=== PATIENT | female | born 1990 | race Caucasian/White ===

== ENCOUNTER → 2020-01-09 16:48 | Outpatient (BNVA) | payer OTHER, SELFPAY | PROVIDERS: Visit Provider Nurse Practitioner Women's Health | DX: Z30.9 Encounter for contraceptive management, unspecified (principal); Z30.013 Encounter for initial prescription of injectable contraceptive | CPT/HCPCS: 88175 ==

== ENCOUNTER → 2020-02-02 15:02 | Outpatient (BNVA) | payer OTHER, SELFPAY | PROVIDERS: Visit Provider Nurse Practitioner Women's Health | DX: Z30.013 Encounter for initial prescription of injectable contraceptive (principal) | CPT/HCPCS: 81025 ==

== ENCOUNTER 2020-10-21 06:00 | Outpatient (CLI) | payer OTHER, SELFPAY ==
[2020-10-21 06:37] LABS: Hematocrit 41.4 % (37.0-47.0); Hemoglobin 13.2 g/dL (11.5-15.3); Mean Corpuscular HGB Conc 31.9 g/dL (30.0-36.0); Mean Corpuscular Volume 87.7 fL (81-99); Mean Platelet Volume 10.5 fL (7.4-10.4); Platelet Count 317 10^3/cmm (130-400); Red Blood Count 4.72 10^6/uL (4.1-5.3); Red Cell Distribution Width 13.9 % (12.1-15.1); White Blood Count 11.1 10^3/uL (4.0-10.0)
[2020-10-21 06:50] LABS: Alanine Aminotransferase 13 U/L (0-33); Albumin Level 3.8 g/dL (3.5-5.2); Alkaline Phosphatase 62 IU/L (35-105); Anion Gap 13.2 (5-19); Aspartate Amino Transferase 13 U/L (0-32); Blood Urea Nitrogen 22 mg/dL (6-20); C Reactive Protein 21.4 mg/L (0.0-4.9); Calcium 8.5 mg/dL (8.5-10.5); Carbon Dioxide 26 mmol/L (22-29); Chloride 101 mmol/L (98-107); Chol HDL Ratio 4.51 mg/dL (0.0-4.40); Cholesterol 185 mg/dL (0-200); Globulin 3.5 g/dL (1.3-4.6); Glomerular Filtration Rate 115.9 mL/min (90-130); Glucose 99 mg/dL (65-115); HDL Cholesterol 41 mg/dL (60-100); LDL Cholesterol Calculated 120 mg/dL (50-129); Osmolality Calculated 285 mOsm/kg (285-295); Potassium 4.2 mmol/L (3.5-5.1); Sodium 136 mmol/L (136-145); Total Bilirubin 0.4 mg/dL (0.15-1.2); Total Protein 7.3 g/dL (6.6-8.7); Triglycerides 119 mg/dL (0-150); VLDL Cholestrol Calculation 24 mg/dL (0-30)
[2020-10-21 07:06] LABS: Absolute Eosinophils 0.2 10^3/cmm (0.0-0.7); Absolute Segmented Neutrophil 7.3 10/cmm (1.6-7.1); Band Neutrophils Absolute 0.2 10^3/cmm (0.0-1.2); Eosinophils 2 %; Lymphocytes 23 %; Monocytes Absolute 0.8 10^3/cmm (0.1-0.6); Segmented Neutrophils 66 %; Total Cells Counted 100 (0-100)
[2020-10-21 07:07] LABS: Absolute Neutrophil 7.5 10^3/cmm (1.4-6.5); Platelet Estimate Normal (Normal)
[2020-10-21 07:12] LABS: Lymphocytes Absolute 2.6 10^3/cmm (1.2-3.4)
[2020-10-21 07:35] LABS: Erythrocyte Sedimentation Rate 32 mm/hr (0-15)
[2020-10-22 11:59] LABS: COMPLEMENT COMPONENT C3C 173 mg/dL (83-193); COMPLEMENT COMPONENT C4C 32 mg/dL (15-57)
[2020-10-22 13:38] LABS: COMPLEMENT, TOTAL (CH50) >60 U/mL (31-60)
[2020-10-25 12:33] LABS: CENTROMERE B ANTIBODY <1.0 NEG AI (<1.0 NEG); JO-1 ANTIBODY <1.0 NEG AI (<1.0 NEG); RNP ANTIBODY <1.0 NEG AI (<1.0 NEG); SCL-70 ANTIBODY <1.0 NEG AI (<1.0 NEG); SJOGREN'S ANTIBODY (SS-A) <1.0 NEG AI (<1.0 NEG); SM ANTIBODY <1.0 NEG AI (<1.0 NEG); SS-B <1.0 NEG AI (<1.0 NEG)
[2020-10-25 14:42] LABS: ANA SCREEN, IFA NEGATIVE (NEGATIVE); THYROID PEROXIDASE ANTIBODIES 1 IU/mL (<9)
[2020-10-29 00:38] LABS: DNA AB (DS) CRITHIDIA,IFA NEGATIVE (NEGATIVE)
== END 2020-10-21 06:01 | disposition home or self-care (01) ==
LOC: LAB 08:09
PROVIDERS: PCP Family Medicine Adult Medicine; Visit Provider Family Medicine Adult Medicine
DX: E66.01 Morbid (severe) obesity due to excess calories (principal); Z68.42 Body mass index [BMI] 45.0-49.9, adult; R52 Pain, unspecified; E78.5 Hyperlipidemia, unspecified
CPT/HCPCS: 80053; 80061; 85007; 85027; 85651; 86140; 86160; 86162; 86235; 86255; 86376; 86431

== ENCOUNTER → 2021-02-08 09:51 | Outpatient (BNVA) | payer OTHER, SELFPAY | PROVIDERS: PCP Family Medicine Adult Medicine; Visit Provider Internal Medicine Rheumatology | DX: M19.90 Unspecified osteoarthritis, unspecified site (principal); Z79.899 Other long term (current) drug therapy; Z11.59 Encounter for screening for other viral diseases; Z11.1 Encounter for screening for respiratory tuberculosis; E66.01 Morbid (severe) obesity due to excess calories; Z68.43 Body mass index [BMI] 50.0-59.9, adult; Z71.89 Other specified counseling | CPT/HCPCS: 99204 ==

== ENCOUNTER 2021-02-08 14:40 | Outpatient (CLI) | payer OTHER, SELFPAY ==
--- NOTE | 2021-02-08 14:50 | XR_ITS ---
WS: [id number] LEFT HAND: 3 VIEW(S) TECHNIQUE: PA, oblique and lateral. HISTORY: Z79.899 - Other snf (current) drug therapy COMPARISON: None available. No acute fracture or dislocation. No soft tissue or bone abnormality. XR/XR hand LT min 3V* [id number] IMPRESSION: Normal LEFT hand.
--- NOTE | 2021-02-08 14:50 | XR_ITS ---
WS: [id number] LEFT FOOT: 3 VIEW(S) TECHNIQUE: AP, oblique and lateral. HISTORY: Z79.899 - Other [facility] (current) drug therapy COMPARISON: None available. No acute fracture or dislocation. Normal tarsal/metatarsal alignment. No soft tissue abnormality or bone destruction. Small calcaneal spur. XR/XR foot LT min 3V* [id number] IMPRESSION: Small calcaneal spur. Otherwise negative.
--- NOTE | 2021-02-08 14:50 | XR_ITS ---
WS: [id number] RIGHT HAND: 3 VIEW(S) TECHNIQUE: PA, oblique and lateral. 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 No acute fracture or dislocation. No soft tissue or bone abnormality. XR/XR hand RT min 3V* [id number] IMPRESSION: Normal RIGHT hand.
--- NOTE | 2021-02-08 14:50 | XR_ITS ---
WS: [id number] PELVIS: AP VIEW SUBMITTED HISTORY: M19.90 - Unspecified osteoarthritis, unspecified site COMPARISON: None available. Bones and soft tissues of the pelvis are intact. No fracture or dislocation. XR/XR pelvis 1-2V* [id number] IMPRESSION: Negative pelvis.
--- NOTE | 2021-02-08 14:50 | XR_ITS ---
WS: [id number] RIGHT FOOT: 3 VIEW(S) TECHNIQUE: AP, oblique and lateral. 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 No acute fracture or dislocation. Normal tarsal/metatarsal alignment. No soft tissue abnormality or bone destruction. Small calcaneal spur. XR/XR foot RT min 3V* [id number] IMPRESSION: Small calcaneal spur. Otherwise negative.
[2021-02-08 16:16] LABS: Basophils # 0.1 10^3/uL (0.0-0.1); Basophils % 0.4 %; Eosinophils # 0.2 10^3/uL (0.0-0.8); Eosinophils % 1.9 %; Hematocrit 44.2 % (37.0-47.0); Hemoglobin 13.7 g/dL (11.5-15.3); Lymphocytes # 2.7 10^3/uL (0.8-4.8); Lymphocytes % 23.7 %; Mean Corpuscular Hemoglobin 27.6 pg (28.0-34.0); Mean Corpuscular Volume 89.1 fl (81-99); Mean Platelet Volume 10.6 fL (7.4-10.4); Monocytes % 8.6 %; Neutrophils # 7.34 10^3/uL (1.8-7.7); Neutrophils % 65.1 %; Nucleated Red Blood Cells % 0 %; Platelet Count 294 10^3/cmm (130-400); Red Blood Count 4.96 10^6/uL (4.1-5.3); Red Cell Distribution Width 14.2 % (12.1-15.1); White Blood Count 11.3 10^3/uL (4.0-10.0)
[2021-02-08 17:00] LABS: Alanine Aminotransferase 16 U/L (0-33); Albumin Level 4.1 g/dL (3.5-5.2); Alkaline Phosphatase 62 IU/L (35-105); Aspartate Amino Transferase 14 U/L (0-32); C Reactive Protein 47.7 mg/L (0.0-4.9); Globulin 3.4 g/dL (1.3-4.6); Total Bilirubin 0.6 mg/dL (0.15-1.2); Total Protein 7.5 g/dL (6.6-8.7)
[2021-02-08 17:13] LABS: Hepatitis B Core AB, Total Non-Reactive (Nonreactive); Hepatitis B Surface Antigen Non-Reactive (Nonreactive); Hepatitis C Virus Antibody Non-Reactive (Nonreactive)
[2021-02-08 17:25] LABS: Erythrocyte Sedimentation Rate 34 mm/hr (0-15)
[2021-02-08 18:56] LABS: 25 Hydroxy Vitamin D 18 ng/mL (30-100)
[2021-02-10 15:08] LABS: Cyclic Citrullinated Peptide <16 UNITS
[2021-02-10 16:28] LABS: Quantiferon Mitogen 8.13 IU/mL; Quantiferon Nil 0.05 IU/mL; Quantiferon Plus TB1 0.01 IU/mL; Quantiferon TB Gold NEGATIVE (NEGATIVE)
== END 2021-02-08 14:41 | disposition home or self-care (01) ==
PROVIDERS: PCP Physician Assistant; Visit Provider Internal Medicine Rheumatology
DX: M19.90 Unspecified osteoarthritis, unspecified site (principal); Z79.899 Other long term (current) drug therapy; Z11.59 Encounter for screening for other viral diseases; Z11.1 Encounter for screening for respiratory tuberculosis
CPT/HCPCS: 36415; 72170; 73130; 73630; 80076; 82306; 82565; 85025; 85651; 86140; 86480; 86704; 86803; 87340

== ENCOUNTER → 2021-03-28 14:33 | Outpatient (BNVA) | payer OTHER, SELFPAY | PROVIDERS: PCP Physician Assistant; Visit Provider Internal Medicine Rheumatology | DX: M06.041 Rheumatoid arthritis without rheumatoid factor, right hand (principal); M06.042 Rheumatoid arthritis without rheumatoid factor, left hand; Z79.899 Other long term (current) drug therapy; E66.01 Morbid (severe) obesity due to excess calories; Z68.42 Body mass index [BMI] 45.0-49.9, adult; M79.7 Fibromyalgia; G47.39 Other sleep apnea; Z82.61 Family history of arthritis; Z71.89 Other specified counseling | CPT/HCPCS: 99214 ==

== ENCOUNTER 2021-03-28 15:35 | Outpatient (CLI) | payer OTHER, SELFPAY ==
[2021-03-28 16:45] LABS: Alanine Aminotransferase 14 U/L (0-33); Alkaline Phosphatase 60 IU/L (35-105); Aspartate Amino Transferase 10 U/L (0-32); C Reactive Protein 11.3 mg/L (0.0-4.9); Glomerular Filtration Rate 115.9 mL/min (90-130); Total Bilirubin 0.6 mg/dL (0.15-1.2)
[2021-03-28 17:03] LABS: Basophils # 0.1 10^3/uL (0.0-0.1); Basophils % 0.4 %; Eosinophils % 0.1 %; Hematocrit 43.2 % (37.0-47.0); Hemoglobin 13.8 g/dL (11.5-15.3); Lymphocytes # 1.8 10^3/uL (0.8-4.8); Lymphocytes % 12.9 %; Mean Corpuscular HGB Conc 31.9 g/dL (30.0-36.0); Mean Corpuscular Hemoglobin 28.8 pg (28.0-34.0); Mean Platelet Volume 10.7 fL (7.4-10.4); Monocytes # 0.5 10^3/uL (0.2-0.9); Monocytes % 3.7 %; Neutrophils # 11.44 10^3/uL (1.8-7.7); Neutrophils % 82.3 %; Nucleated Red Blood Cells % 0 %; Platelet Count 326 10^3/cmm (130-400); Red Cell Distribution Width 15.3 % (12.1-15.1); White Blood Count 13.9 10^3/uL (4.0-10.0)
== END 2021-03-28 15:36 | disposition home or self-care (01) ==
PROVIDERS: PCP Physician Assistant; Visit Provider Internal Medicine Rheumatology
DX: M19.90 Unspecified osteoarthritis, unspecified site (principal); Z79.899 Other long term (current) drug therapy
CPT/HCPCS: 36415; 80076; 82565; 85025; 86140

== ENCOUNTER 2021-05-03 11:24 | Outpatient (CLI) | payer OTHER, SELFPAY ==
[2021-05-03 12:12] LABS: Basophils # 0.1 10^3/uL (0.0-0.1); Basophils % 0.9 %; Eosinophils # 0.1 10^3/uL (0.0-0.8); Eosinophils % 1.7 %; Hematocrit 44.3 % (37.0-47.0); Hemoglobin 14.2 g/dL (11.5-15.3); Lymphocytes # 2.3 10^3/uL (0.8-4.8); Lymphocytes % 29.8 %; Mean Corpuscular HGB Conc 32.1 g/dL (30.0-36.0); Mean Corpuscular Hemoglobin 28.3 pg (28.0-34.0); Mean Corpuscular Volume 88.2 fl (81-99); Mean Platelet Volume 10.3 fL (7.4-10.4); Monocytes # 0.5 10^3/uL (0.2-0.9); Neutrophils % 60.3 %; Nucleated Red Blood Cells % 0 %; Platelet Count 280 10^3/cmm (130-400); Red Blood Count 5.02 10^6/uL (4.1-5.3); Red Cell Distribution Width 14.3 % (12.1-15.1); White Blood Count 7.6 10^3/uL (4.0-10.0)
[2021-05-03 12:55] LABS: Alanine Aminotransferase 21 U/L (0-33); Albumin Level 4.2 g/dL (3.5-5.2); Alkaline Phosphatase 49 IU/L (35-105); Aspartate Amino Transferase 14 U/L (0-32); C Reactive Protein 8.2 mg/L (0.0-4.9); Globulin 2.6 g/dL (1.3-4.6); Glomerular Filtration Rate 115.1 mL/min (90-130); Total Bilirubin 0.6 mg/dL (0.15-1.2); Total Protein 6.8 g/dL (6.6-8.7)
== END 2021-05-03 11:25 | disposition home or self-care (01) ==
PROVIDERS: PCP Physician Assistant; Visit Provider Internal Medicine Rheumatology
DX: M19.90 Unspecified osteoarthritis, unspecified site (principal); Z79.899 Other long term (current) drug therapy
CPT/HCPCS: 36415; 80076; 82565; 85025; 86140

== ENCOUNTER → 2021-05-13 13:28 | Outpatient (BNVA) | payer OTHER, SELFPAY | PROVIDERS: PCP Physician Assistant; Visit Provider Surgery | DX: Z11.52 Encounter for screening for COVID-19 (principal) | CPT/HCPCS: 87635 ==

== ENCOUNTER 2021-05-18 06:07 | Day surgery (SDC) | payer OTHER, SELFPAY ==
[2021-05-16 10:59] VITALS: BMI 48.7
[2021-05-18 06:45] VITALS: BP 127/74; PULSE 84; RESP 18; TEMP 36.4; O2SAT 97
--- NOTE | 2021-05-18 06:52 | W.PM.OPSUD ---
Surgery/Procedure H&P Update DATE OF PROCEDURE: May 18, 2021 DATE H&P PERFORMED: 04/20/21 H&P UPDATE INFORMATION: I have reviewed H&P completed within last 30 days, I have examined patient prior to procedure and No changes to prior documentation PREOP DIAGNOSIS: Morbid obesity/gerd PRIMARY INDICATION FOR PROCEDURE: The same/Prebariatric surgery screening PLANNED PROCEDURE: Operation Date: 05/18/21 07:30 Proposed Procedures p EGD 82654 K21.9(Not Applicable) - Rj Ramirez MD
[2021-05-18] MEDS: sodium chloride 0.9% 1,000 ML 30 ML IV (06:59)
--- NOTE | 2021-05-18 07:45 | ANES.PREANE2 ---
Pre-Anesthetic Assessment Pre-Anesthetic Assessment: Height/Weight: Height 1.55 m Weight 117.027 kg Temp Pulse Resp BP Pulse Ox 97.5 F L 84 18 127/74 97 05/18/21 06:45 05/18/21 06:45 05/18/21 06:45 05/18/21 06:45 05/18/21 06:45 Preop Diagnosis: Morbid obesity/gerd Proposed Procedure: Operation Date: 05/18/21 07:30 Proposed Procedures p EGD 43052 K21.9(Not Applicable) - Rj Ramirez MD Was Beta Julia taken within 24 hours: N/A Was Clonidine taken within 24 hours: N/A Last intake: Intake Last Liquid Date 05/17/21 Last Liquid Time 21:00 Last Solid Date 05/17/21 Last Solid Time 19:30 Social: Social History: No alcohol and No tobacco Exam: Pre-Anes Outpt Exam: alert, oriented x 3, clear to auscultation bilaterally and regular rate & rhythm Airway: Submandibular: WNL Cervical ROM: WNL MP: 3 Dentition: Full History/ROS: No significant history except as noted and No significant complaints Pulmonary: Pulmonary: None reported CV/HEM: CV/HEM: None reported : : None reported Hepatic: Hepatic: None reported GI: GI: GERD Metabolic: Metabolic: None reported Musc/skel: Musc/skel: None reported Neuropsych: Neuropsych: None reported Anesthetic Plan: ASA status: 3 Anesthesia: Anesthesia Evaluation and MAC Risk of > 500 ml blood loss (7ml/kg in children): No Meds/Allergies Current Medications: Current Medications Generic Name Dose Route Start Last Admin Trade Name Freq PRN Reason Stop Dose Admin Sodium Chloride 1,000 mls @ 30 ml s/hr 05/18/21 06:15 05/18/21 06:59 Sodium Chloride 0.9% IV 05/19/21 06:14 30 mls/hr .Q24H YAZAN Administration PFSH Anesthesia PFSH: Medical History Anxiety Complaints of total body pain Contraceptive management Depression Dyslipidemia High risk medication use Immunization counseling Inflammatory arthritis Morbid obesity with BMI of 45.0-49.9, adult No pertinent past medical history neghx: htn,dm,thyroid,dvt/pe Psychiatric care Seronegative rheumatoid arthritis of both hands Surgical History No pertinent past surgical history Family History Father Diabetes Hypertension Heart disease Hyperlipidemia Grandmother Hypertension Paternal grandmother Grandfather Hypertension Paternal grandfather Other CAD (coronary artery disease) Cancer Rheumatoid arthritis Denies family history of Colon cancer Ovarian cancer Lupus Chronic kidney disease (CKD) Breast cancer Family history of thyroid problem Uterine cancer Stroke Social History Alcohol intake: never Marital status: Single Number of children: 0 Current occupational status: employed History of recent travel: No Additional social history: - Tobacco use: Denies Alcohol use: Social Drug use: Denies Female Reproductive History: Date of last menstrual period: 05/08/21 Data Anesthesia Cardiac Studies: No Data to Display
[2021-05-18 08:05] VITALS: BP 134/96; PULSE 97; RESP 16; TEMP 36.1; O2SAT 97
[2021-05-18 08:15] VITALS: BP 133/87; PULSE 79; RESP 18; O2SAT 98
[2021-05-18 08:25] VITALS: BP 115/71; PULSE 77; RESP 18; TEMP 36.2; O2SAT 97
--- NOTE | 2021-05-18 14:08 | ANE.PACU2 ---
Inpatient post-anesthesia follow up: Airway intact: Yes Vital signs: Temperature 97.2 F Pulse Rate 77 Respiratory Rate 18 Blood Pressure 115/71 Pulse Oximetry 97 Oxygen Delivery Me thod Room Air Oxygen Flow Rate Fraction of Inspir ed Oxygen Hydration adequate: Yes Nausea and vomiting: No Pain level: 1 Mental status: Baseline
== END 2021-05-18 08:25 | disposition home or self-care (01) ==
PROVIDERS: PCP Physician Assistant; Visit Provider Surgery
PROC: 0DJ08ZZ Inspection of Upper Intestinal Tract, Via Natural or Artificial Opening Endoscopic (ICD-10-PCS; CPT 43235; principal; 2021-05-18 07:30)
DX: E66.01 Morbid (severe) obesity due to excess calories (principal); Z68.42 Body mass index [BMI] 45.0-49.9, adult; K21.9 Gastro-esophageal reflux disease without esophagitis; K31.7 Polyp of stomach and duodenum; K29.70 Gastritis, unspecified, without bleeding; E78.5 Hyperlipidemia, unspecified
CPT/HCPCS: 43239; 81025; 88305; 96360; J2704; J7030

== ENCOUNTER 2021-08-15 11:43 | Outpatient (CLI) | payer OTHER, SELFPAY ==
[2021-08-15 12:05] LABS: Basophils # 0.1 10^3/uL (0.0-0.1); Basophils % 0.9 %; Eosinophils # 0.2 10^3/uL (0.0-0.8); Eosinophils % 1.8 %; Hemoglobin 13.3 g/dL (11.5-15.3); Lymphocytes # 2.4 10^3/uL (0.8-4.8); Lymphocytes % 22.1 %; Mean Corpuscular HGB Conc 31.7 g/dL (30.0-36.0); Mean Corpuscular Hemoglobin 29.2 pg (28.0-34.0); Mean Corpuscular Volume 92.3 fl (81-99); Mean Platelet Volume 10.3 fL (7.4-10.4); Monocytes # 0.6 10^3/uL (0.2-0.9); Monocytes % 5.7 %; Neutrophils # 7.37 10^3/uL (1.8-7.7); Neutrophils % 69.1 %; Nucleated Red Blood Cells % 0 %; Platelet Count 258 10^3/cmm (130-400); Red Blood Count 4.55 10^6/uL (4.1-5.3); Red Cell Distribution Width 14.6 % (12.1-15.1); White Blood Count 10.7 10^3/uL (4.0-10.0)
[2021-08-15 12:35] LABS: Alanine Aminotransferase 24 U/L (0-33); Albumin Level 4.1 g/dL (3.5-5.2); Alkaline Phosphatase 71 IU/L (35-105); Aspartate Amino Transferase 16 U/L (0-32); C Reactive Protein 20.9 mg/L (0.0-4.9); Globulin 3.3 g/dL (1.3-4.6); Glomerular Filtration Rate 82.6 mL/min (90-130); Total Bilirubin 0.3 mg/dL (0.15-1.2); Total Protein 7.4 g/dL (6.6-8.7)
== END 2021-08-15 11:44 | disposition home or self-care (01) ==
PROVIDERS: PCP Physician Assistant; Visit Provider Internal Medicine Rheumatology
DX: M06.041 Rheumatoid arthritis without rheumatoid factor, right hand (principal); M06.042 Rheumatoid arthritis without rheumatoid factor, left hand; Z79.899 Other long term (current) drug therapy
CPT/HCPCS: 80076; 82565; 85025; 86140

== ENCOUNTER 2022-05-05 07:54 | Outpatient (CLI) | payer OTHER, SELFPAY ==
--- NOTE | 2022-05-05 08:01 | MR_ITS ---
WS: [id number] MRI BRAIN WITHOUT CONTRAST HISTORY: INTRACTABLE CHRONIC MIGRAINE W/O AURA W/STATUS MIGRAINOSUS COMPARISON: None available. TECHNIQUE: Diffusion imaging, multiplanar T1, T2 and FLAIR imaging obtained. No evidence for acute infarct or hemorrhage. Chamberlain-white matter differentiation is normal. No prior infarct. Very minimal T2 and FLAIR hyperintensities. These can be seen with migraine headach es. The distribution is nonspecific. Ventricles and extra-axial spaces are normal. No inferior displacement of cerebellar tonsils. The sella turcica and pituitary gland are unremarkabl e. Dural venous sinuses and [place] demonstrate no abnormality on this unenhanced studies. Paranasal sinuses: Clear. Mastoid air cells: Normal. Calvarium and scalp: Intact. MR/MR head wo con* [id number] IMPRESSION: 1. No acute hemorrhage or prior infarcts. 2. Very minimal, nonspecific T2 and FLAIR signal hyperintensities. These can b e seen with migraine headaches or related very minimal small vessel ischemic c hanges. No prior infarct.
== END 2022-05-05 07:55 | disposition home or self-care (01) ==
PROVIDERS: PCP Physician Assistant; Visit Provider Family Medicine
DX: G43.711 Chronic migraine without aura, intractable, with status migrainosus (principal)
CPT/HCPCS: 70551

== ENCOUNTER 2022-07-06 14:56 | Outpatient (CLI) | payer OTHER, SELFPAY ==
[2022-07-06 16:07] LABS: Basophils # 0.1 10^3/uL (0.0-0.1); Basophils % 0.8 %; Eosinophils # 0.5 10^3/uL (0.0-0.8); Eosinophils % 3.8 %; Hematocrit 42.8 % (37.0-47.0); Hemoglobin 13.5 g/dL (11.5-15.3); Lymphocytes # 2.9 10^3/uL (0.8-4.8); Lymphocytes % 22.3 %; Mean Corpuscular HGB Conc 31.5 g/dL (30.0-36.0); Mean Corpuscular Hemoglobin 27.9 pg (28.0-34.0); Mean Corpuscular Volume 88.4 fl (81-99); Mean Platelet Volume 9.8 fL (7.4-10.4); Monocytes # 0.7 10^3/uL (0.2-0.9); Monocytes % 5.6 %; Neutrophils # 8.71 10^3/uL (1.8-7.7); Neutrophils % 66.9 %; Nucleated Red Blood Cells % 0 %; Platelet Count 378 10^3/cmm (130-400); Red Blood Count 4.84 10^6/uL (4.1-5.3); Red Cell Distribution Width 14.4 % (12.1-15.1)
[2022-07-06 17:07] LABS: Ferritin 157 ng/mL (15-150); Iron 37 ug/dL (37-145); Percent Saturation 15.6 % (20-50); Thyroid Stimulating Hormone 3.98 uIU/mL (0.27-4.20); Total Iron Binding Capacity 236 mcg/dl; Unsaturated Iron Binding 199 ug/dL (112-347); Vitamin B12 496 pg/mL (232-1245)
[2022-07-06 18:14] LABS: Folate Level 7.5 ng/mL (4.8-37.3)
[2022-07-06 19:39] LABS: T3 Free 3.1 PG/ML (2.0-4.4)
[2022-07-10 18:04] LABS: Testosterone, Free 3.7 pg/mL (0.2-5.0)
[2022-07-11 09:05] LABS: Zinc Level, Serum or Plasma 63 mcg/dL (60-130)
[2022-07-11 12:40] LABS: Vit D 1,25 (Oh)2, Total 52 pg/mL (18-72); Vit D2 1,25 (Oh)2 <8 pg/mL; Vit D3 1,25 (Oh)2 52 pg/mL
[2022-07-12 09:44] LABS: Beef (BOS SPP) Class 2; Galactose-alpha-1,3 IgE 1.14 kU/L (<0.10); Lamb / Mutton (Ovis SPP) IgE 0.79 kU/L (<0.35); Lamb / Mutton Class 2; Pork Class 2
[2022-07-13 12:59] LABS: Anti-Nuclear Antibody Pattern Cytoplasmic; Anti-Nuclear Antibody Screen POSITIVE (NEGATIVE); Anti-Nuclear Antibody Titer 1:40 titer
== END 2022-07-06 14:57 | disposition home or self-care (01) ==
LOC: LAB 14:59
PROVIDERS: Registered Nurse; PCP Physician Assistant; Visit Provider Nurse Practitioner Family
DX: L65.9 Nonscarring hair loss, unspecified (principal)
CPT/HCPCS: 36415; 82607; 82652; 82728; 82746; 83540; 83550; 84402; 84443; 84481; 84630; 85025; 86003; 86008; 86038

== ENCOUNTER → 2022-08-10 15:10 | Outpatient (BNVA) | payer OTHER, SELFPAY | PROVIDERS: PCP Family Medicine; Visit Provider Internal Medicine Rheumatology | DX: M06.041 Rheumatoid arthritis without rheumatoid factor, right hand (principal); M06.042 Rheumatoid arthritis without rheumatoid factor, left hand; Z79.899 Other long term (current) drug therapy; M45.6 Ankylosing spondylitis lumbar region | CPT/HCPCS: 36415; 73630; 85651; 86812 ==

== ENCOUNTER 2023-02-26 12:14 | Outpatient (CLI) | payer BC, MEDICAID, SELFPAY ==
[2023-02-26 12:50] LABS: Basophils # 0.1 10^3/uL (0.0-0.1); Basophils % 1.3 %; Eosinophils # 0.4 10^3/uL (0.0-0.8); Eosinophils % 4.6 %; Hematocrit 42.6 % (36-47); Lymphocytes # 2.5 10^3/uL (0.8-4.8); Lymphocytes % 29.8 %; Mean Corpuscular HGB Conc 32.2 g/dL (30-55); Mean Corpuscular Hemoglobin 28.8 pg (27-33); Mean Corpuscular Volume 89.7 fl (85-98); Mean Platelet Volume 10.3 fL (7.4-10.4); Monocytes # 0.6 10^3/uL (0.2-0.9); Monocytes % 6.9 %; Neutrophils # 4.75 10^3/uL (1.8-7.7); Neutrophils % 57.2 %; Nucleated Red Blood Cells % 0 %; Platelet Count 334 10^3/cmm (157-399); Red Blood Count 4.75 10^6/uL (3.85-5.65); Red Cell Distribution Width 14.3 % (12.1-15.1)
[2023-02-26 13:09] LABS: Alanine Aminotransferase 21 U/L (0-33); Albumin Level 4.2 g/dL (3.5-5.2); Alkaline Phosphatase 75 U/L (35-105); Aspartate Amino Transferase 16 U/L (0-32); C Reactive Protein 7.8 mg/L (0.0-4.9); Globulin 3.4 g/dL (1.3-4.6); Glomerular Filtration Rate 82.1 mL/min (90-130); Total Bilirubin 0.5 mg/dL (0.15-1.2); Total Protein 7.6 g/dL (6.6-8.7)
== END 2023-02-26 12:15 | disposition home or self-care (01) ==
PROVIDERS: PCP Family Medicine; Visit Provider Internal Medicine Rheumatology
DX: M06.041 Rheumatoid arthritis without rheumatoid factor, right hand (principal); M06.042 Rheumatoid arthritis without rheumatoid factor, left hand; Z79.899 Other long term (current) drug therapy
CPT/HCPCS: 36415; 80076; 82565; 85025; 86140

== ENCOUNTER → 2023-04-23 16:09 | Outpatient (BNVA) | payer BC, MEDICAID, SELFPAY | PROVIDERS: PCP Family Medicine; Visit Provider Nurse Practitioner Women's Health | DX: N39.0 Urinary tract infection, site not specified (principal) | CPT/HCPCS: 81000 ==

== ENCOUNTER → 2023-05-01 15:17 | Outpatient (BNVA) | payer BC, MEDICAID, SELFPAY | PROVIDERS: PCP Family Medicine; Visit Provider Nurse Practitioner Women's Health | DX: N93.9 Abnormal uterine and vaginal bleeding, unspecified (principal) | CPT/HCPCS: 76830 ==

== ENCOUNTER → 2023-06-13 09:16 | Outpatient (BNVA) | payer BC, MEDICAID, SELFPAY | PROVIDERS: PCP Family Medicine; Visit Provider Nurse Practitioner Women's Health | DX: N93.9 Abnormal uterine and vaginal bleeding, unspecified (principal) | CPT/HCPCS: 76830 ==

== ENCOUNTER → 2023-06-26 09:20 | Outpatient (BNVA) | payer BC, MEDICAID, SELFPAY | PROVIDERS: PCP Family Medicine; Visit Provider Nurse Practitioner Women's Health | DX: Z30.9 Encounter for contraceptive management, unspecified (principal) | CPT/HCPCS: 81025 ==

== ENCOUNTER → 2023-07-03 13:50 | Outpatient (BNVA) | payer BC, MEDICAID, SELFPAY | PROVIDERS: PCP Physician Assistant; Visit Provider Internal Medicine Rheumatology | DX: Z79.899 Other long term (current) drug therapy (principal); M06.041 Rheumatoid arthritis without rheumatoid factor, right hand; M06.042 Rheumatoid arthritis without rheumatoid factor, left hand | CPT/HCPCS: 36415; 80076; 82565; 85025; 85651; 86140 ==

== ENCOUNTER → 2023-10-09 14:31 | Outpatient (BNVA) | payer OTHER, SELFPAY | PROVIDERS: PCP Physician Assistant; Visit Provider Internal Medicine Rheumatology | DX: M06.041 Rheumatoid arthritis without rheumatoid factor, right hand (principal); Z79.899 Other long term (current) drug therapy; M06.042 Rheumatoid arthritis without rheumatoid factor, left hand | CPT/HCPCS: 36415; 80076; 82565; 85025; 86140 ==

== ENCOUNTER 2023-11-20 07:57 | Outpatient (CLI) | payer OTHER, BC, MEDICAID, SELFPAY ==
--- NOTE | 2023-11-20 08:30 | MR_ITS ---
WS: [id number] MRA CAROTID WITHOUT AND WITH GADOLINIUM ENHANCEMENT TECHNIQUE: Axial 2-D TOF and gadolinium bolus images obtained with axial images and axial, sagittal, and coronal 2-D reformatted images. CLINICAL INFORMATION: G43.909 - Migraine, unspecified, not intractable, without... COMPARISON: None. FINDINGS: Codominant and patent vertebral arteries bilaterally. Vertebral arteries are patent to the basilar ju nction. RIGHT: RIGHT common carotid artery is patent. No significant RIGHT ICA stenosis. RIGHT ICA is patent to the skull base. LEFT: LEFT common carotid artery is patent. No significant LEFT ICA stenosis. LEFT ICA is patent to t he skull base. Proximal subclavian arteries are patent. MR/MR angio neck w con* [id number] IMPRESSION: 1. Normal neck MRA.
[2023-11-20] MEDS: gadobenate dimeglumine 20 mL vial IV (08:33)
--- NOTE | 2023-11-20 09:15 | MR_ITS ---
WS: [id number] MRI HEAD WITH CONTRAST TECHNIQUE: Sagittal T1, T2 axial, T2 axial FLAIR, axial susceptibility weighted imaging, axial diffus ion weighted images, and coronal T2 images were obtained. Pre and post-T1 axial and post T1 coronal i mages. ADC and FSPGR images. CLINICAL INFORMATION: G43.909 - Migraine, unspecified, not intractable, without... COMPARISON: MRI 05/05/2022 FINDINGS: No evidence of restricted diffusion to suggest acute ischemia. Ventricular system and basal cisterns are patent. Normal posterior fossa. Normal vascular flow voids at the skull base. No extra-axial flui d collections. No evidence of mass or mass effect. Normal avelar-white differentiation. Paranasal sinus es and mastoid air cells are well aerated. Normal posterior nasopharynx. Small retention cyst RIGHT m axillary sinus. Very minimal periventricular white matter changes unchanged compared to previous of doubtful clinical significance but can be seen with migraine headaches. No hemosiderin on the susceptibility weighted images. Normal optic chiasm and pituitary infundibulum. Temporal lobes and hippocampal formations are normal in appearance. No abnormal intracranial enhancement. Normal dural venous sinuses. MR/MR head wo/w con [id number] IMPRESSION: 1. No evidence of restricted diffusion to suggest acute ischemia. 2. No suspicious intracranial signal abnormalities. 3. Very minimal periventricular white matter changes unchanged compared to pre vious of doubtful clinical significance but can be seen with migraine headaches . 4. No hemosiderin on susceptibility-weighted images. 5. No abnormal gadolinium enhancement. Normal dural venous sinuses.
--- NOTE | 2023-11-20 10:00 | MR_ITS ---
WS: [id number] MRA HEAD TECHNIQUE: Axial 3-D TOF images obtained with axial images and axial, sagittal, and coronal 2-D refor matted images. CLINICAL INFORMATION: G43.909 - Migraine, unspecified, not intractable, without... COMPARISON: None. FINDINGS: Some images slightly degraded by motion. Distal vertebral arteries are patent. Basilar artery is patent. Normal vascularity to the [place] territo ry. Patent RIGHT posterior communicating artery. Both ICAs are patent at the skull base. Normal vascularity to the ARI[place] and MCA territories bilaterally . No evidence of proximal flow-limiting stenosis or aneurysm. MR/MR angio head wo con [id number] IMPRESSION: 1. Normal intracranial MRA.
== END 2023-11-20 07:58 | disposition home or self-care (01) ==
LOC: RAD 07:58
PROVIDERS: PCP Physician Assistant; Visit Provider Psychiatry & Neurology Neurology
DX: G43.909 Migraine, unspecified, not intractable, without status migrainosus (principal)
CPT/HCPCS: 70544; 70548; 70553; A9577

== ENCOUNTER → 2023-12-13 11:02 | Outpatient (BNVA) | payer OTHER, SELFPAY | PROVIDERS: PCP Physician Assistant; Visit Provider Nurse Practitioner Women's Health | DX: R10.2 Pelvic and perineal pain (principal) | CPT/HCPCS: 76830 ==

== ENCOUNTER 2024-01-24 05:16 | Day surgery (SDC) | payer OTHER, SELFPAY ==
[2024-01-24] VITALS (10 sets, daily range): BP systolic 97–130; BP diastolic 60–90; PULSE 50–81; RESP 14–18; TEMP 36.2–36.6; O2SAT 94–100; BMI 43.8
--- NOTE | 2024-01-24 01:30 | W.PM.OPSFHP ---
Same Day Surgery H&P Indication for Procedure/HPI DATE OF PROCEDURE: January 24, 2024 CHIEF COMPLAINT/INDICATIONFOR SURGICAL PROCEDURE: chronic pelvic pain PREOP DIAGNOSIS: chronic pelvic pain PLANNED PROCEDURE: Operation Date: 01/24/24 07:00 Proposed Procedures p diagnostic Laparoscopy w/ Pelvic Biopsies 26481, 70805, R10.2, G89.29(Not Applicable) - Joni Sanchez MD s Possible fulguration of endometriosis(Not Applicable) - Joni Sanchez MD 33 y.o. G0 periods very painful for the past 5 years was started on DMPA July 2023 DMPA was helping with menstrual pain but pain has returned now having constant chronic pelvic pain Medications/Allergies* Home Medications Medication Instructions Recorded Confirmed Type acetaminophen 500 mg tablet 1,000 mg PO BID PRN Pain 02/08/21 01/23/24 History (Tylenol Extra Strength) Allergies/Adverse Reactions Allergy/AdvReac Type Severity Reaction Status Date / Time Penicillins Allergy Mild Hives Verified 01/08/24 08:52 Alpha-Gal Allergy ALGY-Anaphy Verified 01/08/24 08:52 (Npajqdvsp-Jeijy-5,3-Gala laxis morphine AdvReac Mild Nausea Verified 01/08/24 08:52 Pertinent History/Comorbid Conditions* Medical History (Updated 10/16/23 @ 11:30 by Freedom Lee MD) Seronegative rheumatoid arthritis of both hands Immunization counseling High risk medication use Inflammatory arthritis Anxiety Dyslipidemia Complaints of total body pain Morbid obesity with BMI of 45.0-49.9, adult Contraceptive management No pertinent past medical history neghx: htn,dm,thyroid,dvt/pe Depression Surgical History (Updated 10/01/20 @ 13:42 by Nida Ventura) No pertinent past surgical history Family History (Updated 02/08/21 @ 10:42 by Farzana August LPN) Rheumatoid arthritis Diabetes Father CAD (coronary artery disease) Heart disease Father Hyperlipidemia Father Cancer Hypertension Father Grandmother Paternal grandmother Grandfather Paternal grandfather Denies family history of Colon cancer Ovarian cancer Lupus Chronic kidney disease (CKD) Breast cancer Family history of thyroid problem Uterine cancer Stroke Social History Smoking and tobacco/nicotine status: never used tobacco/nicotine Alcohol intake: never Substance/Drug Use: never Additional social history: - Tobacco use: Denies Alcohol use: Social Drug use: Denies Marital status: Single Number of children: 0 Current occupational status: employed Pertinent Exam Findings alert, oriented x 3, clear to auscultation bilaterally and regular rate & rhythm Recommendations Surgery/Procedure today Coding Level of Care Code Acute Code for Chg Fwd Time Spent (min) 20
[2024-01-24 06:13] LABS: OR HCG Qualitative Urine Negative (Negative)
[2024-01-24] MEDS: sodium chloride 0.9% 1,000 ML 30 ML IV (06:20)
--- NOTE | 2024-01-24 06:39 | ANES.PREANE2 ---
Pre-Anesthetic Assessment Height/Weight: Height 5 ft 1 in Weight 232 lb O2 Del Method Room Air 01/24/24 06:08 Preop Diagnosis: chronic pelvic pain Operation Date: 01/24/24 07:00 Proposed Procedures p diagnostic Laparoscopy w/ Pelvic Biopsies 15381, 14171, R10.2, G89.29(Not Applicable) - Joni Sanchez MD s Possible fulguration of endometriosis(Not Applicable) - Joni Sanchez MD Last intake: Intake Last Liquid Date 01/23/24 Last Liquid Time 19:30 Last Solid Date 01/23/24 Last Solid Time 19:30 Social Tobacco and No alcohol Exam alert, oriented x 3, clear to auscultation bilaterally and regular rate & rhythm Airway Submandibular: within normal limits Cervical ROM: within normal limits Mallampati: Class III Dentition: full Comments: Comments: one chipped tooth on bottom Pulmonary None reported Anesthetic Plan ASA status: 3 Anesthesia: General Other: No prior issues with anesthesia NPO since midnight Alpha gal noted Patient denies pulmonary or cardiac issues Current smoker Chronic migraines METs greater than 4 Plan for GETA Medications/Allergies Home Medications Medication Instructions Recorded Confirmed Last Taken Type acetaminophen 500 mg tablet 1,000 mg PO BID PRN Pain 02/08/21 01/23/24 01/23/24 History (Tylenol Extra Strength) duloxetine 60 mg capsule,delayed 60 mg PO DAILY #90 caps 10/09/23 01/23/24 01/23/24 Rx release (Cymbalta) leflunomide 20 mg tablet 20 mg PO DAILY #90 tabs 10/09/23 01/23/24 01/22/24 Rx omeprazole 40 mg capsule,delayed 40 mg PO DAILY #90 caps 10/09/23 01/23/24 01/23/24 Rx release prednisone 5 mg tablet 5 mg PO DAILY #90 tabs 10/09/23 01/23/24 01/23/24 Rx pregabalin 200 mg capsule 200 mg PO BID #60 caps 10/16/23 01/23/24 01/23/24 Rx rizatriptan 10 mg tablet 10 mg PO Q2H PRN chronic migraine 12/21/23 01/23/24 01/21/24 Rx #20 tabs sumatriptan succinate 50 mg tablet See Rx Instructions PO .COMPLEX 12/21/23 01/23/24 Unknown Rx #60 tabs Allergies Allergy/AdvReac Type Severity Reaction Status Date / Time Penicillins Allergy Mild Hives Verified 01/08/24 08:52 Alpha-Gal Allergy ALGY-Anaphy Verified 01/08/24 08:52 (Dchuwfuen-Mjikd-7,3-Gala laxis morphine AdvReac Mild Nausea Verified 01/08/24 08:52 Current Medications Generic Name Dose Route Start Last Admin Trade Name Freq PRN Reason Stop Dose Admin Sodium Chloride 1,000 mls @ 30 mls/hr 01/24/24 06:00 01/24/24 06:20 Sodium Chloride 0.9% IV 01/25/24 05:59 30 mls/hr .Q24H YAZAN Administration PFSH Anesthesia Medical History Seronegative rheumatoid arthritis of both hands Immunization counseling High risk medication use Inflammatory arthritis Anxiety Dyslipidemia Complaints of total body pain Morbid obesity with BMI of 45.0-49.9, adult Contraceptive management No pertinent past medical history neghx: htn,dm,thyroid,dvt/pe Depression Surgical History No pertinent past surgical history Family History Father Diabetes Hypertension Heart disease Hyperlipidemia Grandmother Hypertension Paternal grandmother Grandfather Hypertension Paternal grandfather Other CAD (coronary artery disease) Cancer Rheumatoid arthritis Denies family history of Colon cancer Ovarian cancer Lupus Chronic kidney disease (CKD) Breast cancer Family history of thyroid problem Uterine cancer Stroke Social History Smoking and tobacco/nicotine status: never used tobacco/nicotine Alcohol intake: never Substance/Drug Use: never Additional social history: - Tobacco use: Denies Alcohol use: Social Drug use: Denies Marital status: Single Number of children: 0 Current occupational status: employed Data Anesthesia Cardiac Studies: No Data to Display
--- NOTE | 2024-01-24 06:50 | W.PM.OPSUD ---
Surgery/Procedure H&P Update DATE OF PROCEDURE: January 24, 2024 DATE H&P PERFORMED: 01/24/24 H&P UPDATE INFORMATION: I have reviewed H&P completed within last 30 days, I have examined patient prior to procedure and No changes to prior documentation PREOP DIAGNOSIS: chronic pelvic pain PLANNED PROCEDURE: Operation Date: 01/24/24 07:00 Proposed Procedures p diagnostic Laparoscopy w/ Pelvic Biopsies 46514, 20826, R10.2, G89.29(Not Applicable) - Joni Sanchez MD s Possible fulguration of endometriosis(Not Applicable) - Joni Sanchez MD
--- NOTE | 2024-01-24 09:05 | P.OP_ITS ---
Operative Report Date of procedure: January 24, 2024 Pre-op diagnosis: chronic pelvic pain Post-op diagnosis: Normal pelvis No evidence of endometriosis Post-op findings: Normal uterus, tubes, and ovaries Normal pelvic sidewalls Normal anterior and posterior cul-de-sacs Normal uterosacral, broad, utero-ovarian ligaments Ill-defined cecal adhesions, normal appendix consulted with general surgery, normal bowel, no tx needed Procedure done: laparoscopy Implants: none Specimens removed/disposition: none Surgeon: Joni Sanchez MD Anesthesia: General Estimated blood loss (mL): 0 Complications: none Findings: Normal uterus, tubes, and ovaries Normal pelvic sidewalls Normal anterior and posterior cul-de-sacs Normal uterosacral, broad, utero-ovarian ligaments Ill-defined cecal adhesions, normal appendix consulted with general surgery, normal bowel, no tx needed Condition: stable Disposition: PACU Brief History: 33 y.o. with chronic pelvic pain Procedure: Informed consent obtained. The patient was taken to the OR and placed supine on the table. General endotracheal anesthesia was given. The patient was then placed in dorsolithotomy position. The abdomen and perineum were prepped and draped in usual fashion. A van catheter was placed. A 5 mm subumbilical skin incision was made. A laparoscopic trocar with sheath was inserted into the peritoneal cavity under direct vision with the laparoscope. Pneumoperitoneum was achieved. Two separate 5 mm incisions were made in the right and left mid- abdominal quadrants under direct visualization to accommodate additional trocars and sheaths. The pelvis was explored with the laparoscope. Normal uterus and ovaries were seen. Normal fallopian tubes were seen. No abnormalities were seen in the utero-ovarian ligaments, broad ligaments, anterior and posterior cul-de-sacs and pelvic side-phillips. No white or red lesions, fenestrations, or vascular abnormalities were seen. There were no stellate lesions or fibrosis/adhesions seen. No bleeding was seen The liver edge was visualized and was normal. The remainder of the pelvis was again examined and seen to be normal. There were ill-defined filmy adhesions at the cecal area. Normal appendix was seen. Intra-operative consultation with general surgery was done, normal bowel was seen. All instruments were then removed from the abdominal cavity after the pneumoperitoneum was allowed to escape. The skin incisions were closed with 4-O monocryl. Dermabond was applied. The van catheter was removed. The patient was then awakened and taken to the recovery room in good condition. Postop condition stable. EBL 0 cc. There were no complications. Sponge, instrument, and needle counts were correct x two
--- NOTE | 2024-01-24 09:54 | ANE.PACU2 ---
Inpatient post-anesthesia follow up: Airway intact: Yes Vital signs: Temperature 97.2 F Pulse Rate 50 Respiratory Rate 18 Blood Pressure 105/67 Pulse Oximetry 100 Oxygen Delivery Me thod Room Air Oxygen Flow Rate Fraction of Inspir ed Oxygen Hydration adequate: Yes Nausea and vomiting: Yes Pain level: 1 Mental status: Baseline
== END 2024-01-24 09:54 | disposition home or self-care (01) ==
PROVIDERS: Anesthesiology; PCP Physician Assistant; Visit Provider Obstetrics & Gynecology
PROC: (CPT 49320; principal; 2024-01-24 07:00)
DX: G89.29 Other chronic pain (principal); R10.2 Pelvic and perineal pain; F41.9 Anxiety disorder, unspecified; E78.5 Hyperlipidemia, unspecified; E66.01 Morbid (severe) obesity due to excess calories; Z68.41 Body mass index [BMI] 40.0-44.9, adult; M06.042 Rheumatoid arthritis without rheumatoid factor, left hand; M06.041 Rheumatoid arthritis without rheumatoid factor, right hand; F32.A Depression, unspecified
CPT/HCPCS: 49320; 81025; J1100; J1200; J2405; J2704; J3010; J3490; J7030